=== PATIENT | male | born 1965 | race Caucasian/White ===

== ENCOUNTER 2016-10-20 08:33 | Emergency (ER) | payer BC ==
[~2016-10-20] VITALS: Ht 170.2 cm; Wt 88.7 kg
[~2016-10-20 08:33] MED LIST: NOHOMEMEDS
[2016-10-20 09:13] LABS: EOSINOPHIL (%) 3.3 % (0-5); EOSINOPHIL COUNT 0.2 K/uL (0-0.3); HEMATOCRIT 43.1 % (38.0-50.0); IMMATURE GRANULOCYTE (%) 0.2 % (0.0-0.7); IMMATURE GRANULOCYTE COUNT 0.1 K/uL; LYMPHOCYTE COUNT 1.5 K/uL (1.0-2.8); MCH 31.1 PG (29.0-34.0); MCHC 35.3 G/DL (30.0-36.0); MCV 88.1 FL (86-99); MEAN PLAT.VOLUME 10.4 uM^3 (9.0-12.4); MONOCYTE (%) 6.9 % (3-12); MONOCYTE COUNT 0.4 K/uL (0-0.8); NEUTROPHIL (%) 65.5 % (45-76); PLATELET COUNT 240 K/uL (156-360); RBC DIS.WIDTH-CV 11.8 % (11.8-14.6); RBC DIS.WIDTH-SD 37.6 % (39-53); RED BLOOD COUNT 4.89 M/uL (4.00-5.50); WHITE BLOOD COUNT 6.1 K/uL (4.1-10.2)
[2016-10-20 09:24] LABS: CHLORIDE 107 mEq/L (99-109); POTASSIUM 3.9 mEq/L (3.7-5.4); SODIUM 140 mEq/L (136-147)
[2016-10-20 09:25] LABS: GLUCOSE 82 mg/dL (70-99)
[2016-10-20 09:27] LABS: ANION GAP 11 MEQ/L (2-14)
[2016-10-20 09:29] LABS: GFR ESTIMATE (CALCULATED) > 59 mL/min/
[2016-10-20 09:30] LABS: UREA NITROGEN (BUN) 14 mg/dL (9-23)
[2016-10-20 12:01] LABS: ERTH.SED.RATE 5 MM/HR (0-15)
[2016-10-20] MEDS ORDERED: FIORICET,ESG1 TABLET PO (12:18)
[2016-10-20 12:36] VITALS: BP 117/72
== END 2016-10-20 12:36 | disposition home or self-care (01) ==
LOC: EME 08:33
PROVIDERS: Physician Assistant
DX: R51 Headache (principal)
CPT/HCPCS: 80048; 85025; 85651; 99281; 99285; J1100; J1885; J2765; J7030

== ENCOUNTER 2017-08-19 21:25 | Inpatient (IN) | payer OTHER ==
[~2017-08-19] VITALS: Ht 175.3 cm; Wt 89.9 kg
[~2017-08-19 21:25] MED LIST changes: +FIORICET,ESG1 TABLET PO
[2017-08-19 22:11] LABS: EOSINOPHIL (%) 0.1 % (0-5); HEMATOCRIT 43.2 % (38.0-50.0); IMMATURE GRANULOCYTE (%) 0.2 % (0.0-0.7); INSTRUMENT ABS NEUTROPHIL CT 8.9 K/uL; LYMPHOCYTE COUNT 0.8 K/uL (1.0-2.8); MCH 31.5 PG (29.0-34.0); MCHC 35.4 G/DL (30.0-36.0); MCV 88.9 FL (86-99); MEAN PLAT.VOLUME 10.8 uM^3 (9.0-12.4); MONOCYTE (%) 3.7 % (3-12); MONOCYTE COUNT 0.4 K/uL (0-0.8); NEUTROPHIL (%) 88.2 % (45-76); NEUTROPHIL COUNT 8.9 K/uL (1.8-6.4); PLATELET COUNT 246 K/uL (156-360); RBC DIS.WIDTH-CV 12.1 % (11.8-14.6); RBC DIS.WIDTH-SD 38.9 % (39-53); RED BLOOD COUNT 4.86 M/uL (4.00-5.50)
[2017-08-19 22:19] LABS: CHLORIDE 118 mEq/L (99-109); POTASSIUM 3.8 mEq/L (3.7-5.4); SODIUM 141 mEq/L (136-147)
[2017-08-19 22:21] LABS: GLUCOSE 150 mg/dL (70-99)
[2017-08-19 22:22] LABS: ANION GAP 8 MEQ/L (2-14)
[2017-08-19 22:25] LABS: GFR ESTIMATE (CALCULATED) > 59 mL/min/
[2017-08-19 22:26] LABS: UREA NITROGEN (BUN) 13 mg/dL (9-23)
[2017-08-19 22:33] LABS: TROP-I INTERPRETATION NEGATIVE; TROPONIN-I < 0.01 ng/mL (0.0-0.30)
[2017-08-20 04:56] VITALS: BP 125/87
[2017-08-20] MEDS ORDERED: TOPAMAX50 MG PO (05:43)
[2017-08-20] MEDS ORDERED: GABAPENTIN600 MG PO (05:44)
[2017-08-20] MEDS ORDERED: CELEXA10 MG PO (05:45)
[2017-08-20 12:14] VITALS: BP 120/77
[2017-08-20 16:28] VITALS: BP 131/79
[2017-08-20 19:26] VITALS: BP 140/79
[2017-08-20 23:20] VITALS: BP 138/72
[2017-08-21 03:19] VITALS: BP 119/76
[2017-08-21 07:37] VITALS: BP 132/94
[2017-08-21 11:19] VITALS: BP 114/73
[2017-08-21] MEDS ORDERED: CLARITIN,ALAVAR10 MG PO (13:34)
[2017-08-21 15:26] VITALS: BP 135/85
[2017-08-21 23:27] VITALS: BP 116/69
[2017-08-22 08:29] VITALS: BP 134/81
[2017-08-22] MEDS ORDERED: TAMSULOSIN HCL0.4 MG PO (09:23)
[2017-08-22] MEDS ORDERED: AUGMENTIN875 MG PO (09:24)
[2017-08-22] MEDS ORDERED: OMEPRAZOLE20 M2 PO (09:24)
== END 2017-08-22 09:55 | disposition home or self-care (01) | DRG 205 ==
LOC: EME 21:25 → 2EAST 08-20 02:18 → EDOF 08-20 02:18 → ENRESERV 08-20 02:19 → 2EASTP 08-20 04:41 → 2EAST 08-20 21:18
PROVIDERS: Emergency Medicine
DX: J95.89 Other postprocedural complications and disorders of respiratory system, not elsewhere classified (principal); J69.0 Pneumonitis due to inhalation of food and vomit; J98.11 Atelectasis; Y83.8 Other surgical procedures as the cause of abnormal reaction of the patient, or of later complication, without mention of misadventure at the time of the procedure; N20.2 Calculus of kidney with calculus of ureter; E87.2 Acidosis; R51 Headache; K29.70 Gastritis, unspecified, without bleeding; R09.02 Hypoxemia; K59.00 Constipation, unspecified; G89.29 Other chronic pain; M79.601 Pain in right arm; F32.9 Major depressive disorder, single episode, unspecified; E66.9 Obesity, unspecified; Z68.29 Body mass index [BMI] 29.0-29.9, adult; Z96.89 Presence of other specified functional implants; Z87.828 Personal history of other (healed) physical injury and trauma; Z98.890 Other specified postprocedural states; Z90.49 Acquired absence of other specified parts of digestive tract; Z83.3 Family history of diabetes mellitus; Z82.0 Family history of epilepsy and other diseases of the nervous system
CPT/HCPCS: 71010; 71275; 74176; 80048; 80048 91; 84484; 85025; 85027; 87070; 87205; 93005; 99202; 99281; 99285; J0295; J7050

== ENCOUNTER 2018-01-01 09:54 | Day surgery (SDC) | payer BC ==
[~2018-01-01] VITALS: Ht 175.3 cm; Wt 83.0 kg
[~2018-01-01 09:54] MED LIST changes: +AUGMENTIN875 MG PO; +CELEXA10 MG PO; +CLARITIN,ALAVAR10 MG PO; +GABAPENTIN600 MG PO; +OMEPRAZOLE20 M2 PO; +TAMSULOSIN HCL0.4 MG PO; +TOPAMAX50 MG PO
[2018-01-01 10:26] VITALS: BP 117/75
[2018-01-01 13:45] VITALS: BP 137/90
[2018-01-01 14:53] VITALS: BP 129/78
== END 2018-01-01 14:55 | disposition home or self-care (01) ==
LOC: SDC 09:54
PROVIDERS: Urology
DX: N20.1 Calculus of ureter (principal); Z90.49 Acquired absence of other specified parts of digestive tract; Z83.3 Family history of diabetes mellitus; Z82.49 Family history of ischemic heart disease and other diseases of the circulatory system
CPT/HCPCS: 71046; 74420; 82365 90; C1769; C2625; J0131; J0330; J0690; J1100; J1580; J1885; J2250; J2405; J2710; J3010; J7120; J7643; Q0175